=== PATIENT | female | born 1980 | race Caucasian/White ===

== ENCOUNTER 2018-04-08 11:04 | Emergency (ER) | payer OTHER ==
[2018-04-08 11:17] VITALS: BP 126/77; PULSE 95; RESP 18; TEMP 98.3
[2018-04-08] MEDS ORDERED: LIDOCAINE VISCOUS 2% 15 ML CUP MUCOUS MEM ONE (11:51)
[2018-04-08] MEDS ORDERED: cefTRIAXone 250 MG VIAL IM STA (11:51)
[2018-04-08] MEDS ORDERED: AZITHROMYCIN 500 MG TAB PO STA (11:51)
--- NOTE | 2018-04-08 11:56 | ED ---
General Adult HPI - General Chief complaint: GI Bleed Stated complaint: Rectal bleed Time Seen by Provider: 04/08/18 11:43 Source: patient, RN notes reviewed Mode of arrival: ambulatory Limitations: no limitations - History of Present Illness Initial comments: Patient 37-year-old female presented to the emergency room today with multiple complaints. She does admit that she came here to the emergency room initially because she needed be treated for gonorrhea. She states her boyfriend was recently seen here in emergency room test positive. She does admit that she's had some discharge just over the last 2 days. Patient also admits that last night she ate something that disagreed with her and she had diarrhea throughout the night. She states she has hemorrhoid this morning that was bleeding. She does admit some local tenderness. She denies any other complaints or symptoms. Patient denies any recent fever, chills, shortness of breath, chest pain, back pain, abdominal pain, nausea or vomiting, numbness or tingling, dysuria or hematuria, constipation, headaches or visual changes, or any other complaints. - Related Data Previous Rx's Medication Instructions Recorded Hydrocortisone [Anusol-Hc] 1 applic RECTAL TID #1 gm 04/08/18 Allergies Allergy/AdvReac Type Severity Reaction Status Date / Time ibuprofen [From Motrin] Allergy Swelling Verified 04/08/18 11:24 latex Allergy Rash/Hives Verified 04/08/18 11:24 tramadol HCl [From Ultram] Allergy Unknown Verified 04/08/18 11:24 Review of Systems ROS Statement: Those systems with pertinent positive or pertinent negative responses have been documented in the HPI. ROS Other: All systems not noted in ROS Statement are negative. Past Medical History Past Medical History: GERD/Reflux Additional Past Medical History / Comment(s): hx hypoglycemia History of Any Multi-Drug Resistant Organisms: None Reported Past Surgical History: Joint Replacement, Tubal Ligation Additional Past Surgical History / Comment(s): lt knee replacement Past Anesthesia/Blood Transfusion Reactions: No Reported Reaction Past Psychological History: Anxiety, Depression Smoking Status: Current every day smoker Past Alcohol Use History: None Reported Past Drug Use History: None Reported, Marijuana - Past Family History Mother History Unknown: Yes Family Medical History: Asthma, Coronary Artery Disease (CAD), Fibromyalgia, GERD/Reflux, Sleep Apnea/CPAP/BIPAP Additional Family Medical History / Comment(s): Aneurysm General Exam - General Exam Comments Initial Comments: General: The patient is awake and alert, in no distress, and does not appear acutely ill. Eye: Pupils are equal, round and reactive to light, extra-ocular movements are intact. No nystagmus. There is normal conjunctiva bilaterally. No signs of icterus. Ears, nose, mouth and throat: There are moist mucous membranes and no oral lesions. Neck: The neck is supple, there is no tenderness or JVD. Musculoskeletal: Normal ROM, no tenderness. Strength 5/5. Sensation intact. Neurological: A&O x 3. CN II-XII intact, There are no obvious motor or sensory deficits. Coordination appears grossly intact. Speech is normal. Skin: Skin is warm and dry and no rashes or lesions are noted. Psychiatric: Cooperative, appropriate mood & affect, normal judgment. Limitations: no limitations Course Vital Signs 04/08/18 11:13 Temperature 98.3 F Pulse Rate 95 Respiratory 18 Rate Blood Pressure 126/77 O2 Sat by Pulse 97 Oximetry Medical Decision Making - Medical Decision Making Patient will be treated for gonorrhea given a dose of Rocephin and also azithromycin here in emergency room. Patient will be also given lidocaine topical for hemorrhoid and placed on hemorrhoid cream and advised to use over- the-counter tuck wipes Disposition Clinical Impression: Gonorrhea, Hemorrhoid Disposition: HOME SELF-CARE Condition: Good Instructions: Sexually Transmitted Diseases (ED), Hemorrhoids (ED) Additional Instructions: Please no intercourse until all symptoms are completely resolved. Please use [id number] wipes for hemorrhoids as discussed. Please use cream as prescribed. Please follow-up the family doctor symptoms are all improved or return here to the emergency room for any other concerns. Prescriptions: Hydrocortisone [Anusol-Hc] 1 applic RECTAL TID #1 gm Is patient prescribed a controlled substance at d/c from ED?: No Referrals: None,Stated [Primary Care Provider] - 1-2 days Time of Disposition: 11:54
== END 2018-04-08 12:08 | disposition home or self-care (01) ==
LOC: EC 11:04
DX: K64.9 Unspecified hemorrhoids (principal); A54.9 Gonococcal infection, unspecified; F17.200 Nicotine dependence, unspecified, uncomplicated; Z88.5 Allergy status to narcotic agent; Z88.6 Allergy status to analgesic agent; Z91.040 Latex allergy status; Z98.51 Tubal ligation status
CPT/HCPCS: 99284; 96372; J0696

== ENCOUNTER 2019-04-16 11:00 | Emergency (ER) | payer OTHER ==
[2019-04-16 11:22] VITALS: TEMP 98.5
--- NOTE | 2019-04-16 11:57 | ED ---
Abdominal Pain HPI - General Chief Complaint: Abdominal Pain Stated Complaint: AND CRAMPING Time Seen by Provider: 04/16/19 11:24 Source: patient, RN notes reviewed Mode of arrival: ambulatory Limitations: no limitations - History of Present Illness Initial Comments: 38-year-old female presents emergency Department chief complaint of abdominal pain and early . Patient states that she found out she was last month has not had an ultrasound at this time. Patient believes that she is a weeks denies any vaginal bleeding or vaginal discharge. Patient states she has some mild lower abdominal cramping. Patient is concerned as she had tubal 19 years ago. Patient states that she was told that she had some scarring that she most likely will not get . Patient denies nausea, vomiting diarrhea, constipation. - Related Data Previous Rx's Medication Instructions Recorded Hydrocortisone [Anusol-Hc] 1 applic RECTAL TID #1 gm 04/08/18 Allergies Allergy/AdvReac Type Severity Reaction Status Date / Time ibuprofen [From Motrin] Allergy Swelling Verified 04/16/19 11:22 latex Allergy Rash/Hives Verified 04/16/19 11:22 tramadol HCl [From Ultram] Allergy Unknown Verified 04/16/19 11:22 Review of Systems ROS Statement: Those systems with pertinent positive or pertinent negative responses have been documented in the HPI. ROS Other: All systems not noted in ROS Statement are negative. Past Medical History Past Medical History: GERD/Reflux Additional Past Medical History / Comment(s): hx hypoglycemia History of Any Multi-Drug Resistant Organisms: None Reported Past Surgical History: Joint Replacement, Tubal Ligation Additional Past Surgical History / Comment(s): lt knee replacement Past Anesthesia/Blood Transfusion Reactions: No Reported Reaction Past Psychological History: Anxiety, Depression Smoking Status: Current every day smoker Past Alcohol Use History: None Reported Past Drug Use History: None Reported, Marijuana - Past Family History Mother History Unknown: Yes Family Medical History: Asthma, Coronary Artery Disease (CAD), Fibromyalgia, GERD/Reflux, Sleep Apnea/CPAP/BIPAP Additional Family Medical History / Comment(s): Aneurysm General Exam Limitations: no limitations General appearance: alert, in no apparent distress Neck exam: Present: normal inspection. Absent: tenderness, meningismus, lymphadenopathy Respiratory exam: Present: normal lung sounds bilaterally. Absent: respiratory distress, wheezes, rales, rhonchi, stridor Cardiovascular Exam: Present: regular rate, normal rhythm, normal heart sounds. Absent: systolic murmur, diastolic murmur, rubs, gallop, clicks GI/Abdominal exam: Present: soft, tenderness (Minimal suprapubic), normal bowel sounds. Absent: distended, guarding, rebound, rigid Back exam: Absent: CVA tenderness (R), CVA tenderness (L) Skin exam: Present: warm, dry, intact, normal color. Absent: rash Course Vital Signs 04/16/19 11:20 Temperature 98.5 F Pulse Rate 73 Respiratory 18 Rate Blood Pressure 117/64 O2 Sat by Pulse 100 Oximetry Medical Decision Making - Medical Decision Making 38-year-old female presented for abdominal pain and , mild cramping. Patient's urinalysis unremarkable. Patient's vitals are stable. Physical exam is benign. Patient had an ultrasound which shows single viable IUP 13 weeks and 6 days patient will be discharged and follow-up with her SOCK LINING EXAMINER. - Lab Data Lab Results 04/16/19 04/16/19 Range/Units 11:55 11:55 Urine Color Yellow Urine Appearance Clear (Clear) Urine pH 6.5 (5.0-8.0) Ur Specific [place] 1.014 (1.001-1.035) Urine Protein Negative (Negative) Urine Glucose (UA) Negative (Negative) Urine Ketones Negative (Negative) Urine Blood Negative (Negative) Urine Nitrite Negative (Negative) Urine Bilirubin Negative (Negative) Urine Urobilinogen <2.0 (<2.0) mg/dL Ur Leukocyte Esterase Small H (Negative) Urine RBC 1 (0-5) /hpf Urine WBC 1 (0-5) /hpf Ur Squamous Epith Cells 2 (0-4) /hpf Urine Mucus Rare H (None) /hpf Urine HCG, Qual Detected (Not Detectd) Disposition Clinical Impression: Abdominal pain during Disposition: HOME SELF-CARE Condition: Stable Instructions (If sedation given, give patient instructions): Abdominal Pain in (ED) Additional Instructions: Please return to the Emergency Department if symptoms worsen or any other concerns. Is patient prescribed a controlled substance at d/c from ED?: No Referrals: Mary Bullard MD [Primary Care Provider] - 1-2 days Time of Disposition: 13:27
[2019-04-16 12:17] LABS: Appearance,Urine Clear (Clear); Bilirubin,Urine Negative (Negative); Blood,Urine Negative (Negative); Color,Urine Yellow; Glucose,Urine (UA) Negative (Negative); Ketones,Urine Negative (Negative); Leukocyte Esterase,Urine Small (Negative); Mucus,Urine Rare /hpf; Nitrite,Urine Negative (Negative); PH, Urine 6.5 (5.0-8.0); Protein,Urine Negative (Negative); RBC,Urine 1 /hpf (0-5); Specific Gravity,Urine 1.014 (1.001-1.035); Squamous Epithelial Cell,Urine 2 /hpf (0-4); Urobilinogen,Urine <2.0 mg/dL (<2.0); WBC,Urine 1 /hpf (0-5)
--- NOTE | 2019-04-16 13:25 | US ---
EXAMINATION TYPE: Ultrasound OB <= 14 week fetus DATE OF EXAM: 04/16/2019 1:03 PM COMPARISON: NONE CLINICAL HISTORY: 38-year-old female Pain. Cramping, history of ectopic 20 years ago EXAM PERFORMED: Transabdominal (TA) FINDINGS: EXAM MEASUREMENTS: GESTATIONAL AGE / DATING Physician Established: Not yet established Dates by LMP: (10 weeks/2 days) EDC: 11/10/19 Dates by First Scan: No previous this is first scan Dates by Current Scan for: (13 weeks/6 days +/- 1 week 2 days) EDC: 10/16/19 MATERNAL ANATOMY Uterus: 16.1 x 7.0 x 10.9cm Right Ovary: 3.7 x 2.4 x 2.1cm Left Ovary: unable to visualize Post CDS / Adnexa: appears wnl Presence of free fluid: no Presence of corpus luteal cyst: hypoechoic area right ovary = 1.8 x 1.7 x 1.7cm GESTATION / SURVEY CRL: 7.7cm (13 weeks/6 days) Yolk Sac (normal less than 6mm): not seen Heart Rate: 135 bpm Rhythm: Normal IUP: Viable IUP Date of LMP: 02/03/19 Beta HcG (if available): Not available at this time single viable IUP 13wks/6 days with ROBERTO of 10/16/19. Probable corpus luteum right ovary IMPRESSION: 1. Single live intrauterine with gestational age of 13 weeks 6 days by crown-rump length. T his is discordant with gestational age by LMP. Correlate as to accuracy of recall of LMP. Follow-up a s clinically indicated. 2. Left ovary could not be visualized. 3. Complete survey recommended at 18-20 weeks.
[2019-04-16 13:37] VITALS: BP 129/87; PULSE 89; RESP 16
== END 2019-04-16 13:37 | disposition home or self-care (01) ==
LOC: EC 11:00
DX: O26.891 Other specified pregnancy related conditions, first trimester (principal); R10.30 Lower abdominal pain, unspecified; O99.331 Smoking (tobacco) complicating pregnancy, first trimester; F17.200 Nicotine dependence, unspecified, uncomplicated; Z3A.13 13 weeks gestation of pregnancy; Z88.5 Allergy status to narcotic agent; Z91.040 Latex allergy status; Z88.6 Allergy status to analgesic agent; Z96.652 Presence of left artificial knee joint
CPT/HCPCS: 76801; 81001; 81025; 99284

== ENCOUNTER 2019-10-11 06:15 | Inpatient (IN) | payer OTHER ==
[2019-10-11] MEDS ORDERED: LIDOCAINE 0.5% (PF) 5 MG/ML (50 ML SDV) SQ PRN (07:03)
[2019-10-11] MEDS ORDERED: TERBUTALINE 1 MG/ML VIAL SQ PRN (07:03)
[2019-10-11] MEDS ORDERED: OXYTOCIN 10 UNIT/ML 1 ML VIAL IM PRN (07:03)
[2019-10-11] MEDS ORDERED: CARBOPROST TROMETHAMINE 250 MCG/ML 1 ML AMP IM PRN (07:03)
[2019-10-11] MEDS ORDERED: METHYLERGONOVINE 0.2 MG/ML 1 ML AMP IM PRN (07:03)
[2019-10-11 07:15] LABS: Basophils % (A) 0 %; Eosinophils # (A) 0.2 k/uL (0-0.7); Eosinophils % (A) 2 %; HCT 36.4 % (34.0-46.0); HGB 12.9 gm/dL (11.4-16.0); Lymphocytes # (A) 2.1 k/uL (1.0-4.8); Lymphocytes % (A) 25 %; MCH 33.1 pg (25.0-35.0); MCHC 35.5 g/dL (31.0-37.0); MCV 93.2 fL (80.0-100.0); Mean Platelet Volume 8.3; Monocytes # (A) 0.6 k/uL (0-1.0); Monocytes % (A) 7 %; Neutrophils # (A) 5.3 k/uL (1.3-7.7); Neutrophils % (A) 64 %; Platelet Count 236 k/uL (150-450); RBC 3.91 m/uL (3.80-5.40); RDW 13.2 % (11.5-15.5); WBC 8.3 k/uL (3.8-10.6)
[2019-10-11] MEDS: LACTATED RINGERS 1,000 ML IV SCH ×2 (07:33→19:51)
[2019-10-11] MEDS: OXYTOCIN 30 UNITS/500 ML NS 30 UNIT in SALINE 1 500ML.BAG IV SCH (07:33)
--- NOTE | 2019-10-11 08:34 | P.HPOB ---
History of Present Illness H&P Date: 10/11/19 Chief Complaint: Intrauterine at term: Induction of labor Jacqueline is a 39-year-old 3 para 1 at 39 weeks gestation. Her course has been complicated by advanced maternal age as well as marijuana use. We have been following her very closely and we did call Latrice with maternal- medicine. The last time she was seen she was not significantly dilated but this was at 37 weeks. At that time per her request and induction was scheduled but she did not return for follow-up visit. Therefore she was not examined at 38 weeks to determine cervical favorability. This morning her cervix is fingertip 50% effaced and very high. Will obtain ultrasound later this morning to verify EFW/LEÓN/and position. After discussion of options with her and based on her maternal age, she would like to try Pitocin augmentation at least initially this morning. If it does not work will likely stop the Pitocin and do Cervidil ripening this afternoon with hopeful induction tomorrow. We did discuss sending her home, but she is adamant that she have her baby. She is aware that there is a significant higher risk of failure and need for section based on cervical ripeness as well as. all questions w regular diet and plan for Cervidil tonight.bernardA diet a diet answered for her at this time. We'll plan Pitocin augmentation of labor until early afternoon at which time should she not be dilated we'll allow her to have food and plan cervadil for tonight and retry induction in a.m. be category 1 tracing is noted. Past Medical History Past Medical History: GERD/Reflux Additional Past Medical History / Comment(s): hx hypoglycemia History of Any Multi-Drug Resistant Organisms: None Reported Past Surgical History: Joint Replacement, Tubal Ligation Additional Past Surgical History / Comment(s): lt knee replacement Past Anesthesia/Blood Transfusion Reactions: No Reported Reaction Past Psychological History: Anxiety, Depression Smoking Status: Current every day smoker Past Alcohol Use History: None Reported Past Drug Use History: None Reported, Marijuana Additional Drug Use History / Comment(s): daily marijuana use - Past Family History Mother History Unknown: Yes Family Medical History: Asthma, Coronary Artery Disease (CAD), Fibromyalgia, GERD/Reflux, Sleep Apnea/CPAP/BIPAP Additional Family Medical History / Comment(s): Aneurysm Medications and Allergies Home Medications Medication Instructions Recorded Confirmed Type Hydrocortisone [Anusol-Hc] 1 applic RECTAL TID #1 gm 04/08/18 Rx Allergies Allergy/AdvReac Type Severity Reaction Status Date / Time ibuprofen [From Motrin] Allergy Swelling Verified 10/11/19 07:02 latex Allergy Rash/Hives Verified 10/11/19 07:02 tramadol HCl [From Ultram] Allergy Unknown Verified 10/11/19 07:02 Exam Osteopathic Statement: *. No significant issues noted on an osteopathic structural exam other than those noted in the History and Physical/Consult. Vital Signs Temp Pulse Resp BP 10/11/19 07:01 96.9 F L 97 16 120/77 Intake and Output 10/10/19 10/11/19 10/11/19 22:59 06:59 14:59 Other: Weight 98.43 kg - OBG Physical Exam Breast: both: normal (no masses) Abdomen: bowel sounds normal, no diffuse tenderness, no bruit present, no guarding noted, no hepatomegaly, no splenomegaly, no mass Vulva: both: normal Vagina: normal moisture, no discharge Cervix: no lesion, no discharge Uterus: normal size, normal contour Adnexa: both: normal Anus/Rectum: normal perianal skin, no rectal mass, no hemorrhoids, heme negative Results Result Diagrams: 10/11/19 07:00
--- NOTE | 2019-10-11 09:38 | US ---
EXAMINATION TYPE: US OB BPP wo non-stress DATE OF EXAM: 10/11/2019 COMPARISON: NONE CLINICAL HISTORY: advanced maternal age. advanced maternal age EXAM PERFORMED: Transabdominal (TA) BPP PARAMETERS: PRESENTATION: Vertex LIE: Longitudinal?? HEART RATE: 136 bpm RHYTHM: Normal LEÓN: 17.4cm DIAPHRAGM IMAGED: yes BPP SCORIN. Breathin (1 episode of breathing of 30 second duration in 30 minutes of scanning time) 2. Movement: 2 (at least 3 discrete body movements in 30 minutes) 3. Tone: 2 (1 episode of active flexion/extension of limb) 4. LEÓN: 2 (LEÓN index > 5cm) IMPRESSION: NORMAL EXAM. TOTAL SCORE: 8 / 8
--- NOTE | 2019-10-11 09:40 | US ---
EXAMINATION TYPE: US OB limited DATE OF EXAM: 10/11/2019 COMPARISON: NONE CLINICAL HISTORY: advanced maternal age. Position, EFW EXAM PERFORMED: Transabdominal (TA) GESTATIONAL AGE / DATING Physician Established: (39 weeks/2 days) EDC: 10/16/19 Dates by Current Scan: (37 weeks/5 days) EDC: 10/27/19 SURVEY PRESENTATION: Vertex LIE: Longitudinal HEART RATE: 127 bpm RHYTHM: Normal BPD: 8.9cm (36wks/0days) HC: 33.7cm (38wks/5days) AC: 34.1cm (38wks/1day) FL: 7.3cm (37wks/4days) EFW: 3290 grams 7lbs 4 oz HC/AC: 0.99 normal FL/AC: 22% normal IMPRESSION: Single live intrauterine with a sonographic age of 37 weeks and 5 days and est imated date of delivery of 10/27/2019, discordant with menstrual age likely due to late gestation. Po sition as longitudinal and presentation is vertex. Heart rate of 127 bpm.
[2019-10-11] MEDS ORDERED: DINOPROSTONE 10 MG INSERT.ER VAGINAL ONE (17:00)
[2019-10-11] MEDS ORDERED: ONDANSETRON 4 MG/2 ML VIAL IVP STA (17:47)
[2019-10-11] MEDS ORDERED: ONDANSETRON 4 MG/2 ML VIAL IVP PRN (20:06)
[2019-10-11] MEDS ORDERED: BUTORPHANOL 1 MG/ML 1 ML VIAL IV PRN (20:06)
[2019-10-12] MEDS: LACTATED RINGERS 1,000 ML IV SCH ×4 (01:12→19:59)
[2019-10-12] MEDS: OXYTOCIN 30 UNITS/500 ML NS 30 UNIT in SALINE 1 500ML.BAG IV SCH (06:46)
[2019-10-12] MEDS ORDERED: CITRIC ACID-SODIUM CITRATE 15 ML CUP PO ONE (08:33)
[2019-10-12] MEDS ORDERED: ONDANSETRON 4 MG/2 ML VIAL ONE (08:42)
[2019-10-12] MEDS ORDERED: KETOROLAC 30 MG/ML 1 ML VIAL ONE (08:42)
[2019-10-12] MEDS ORDERED: OXYTOCIN 10 UNIT/ML 1 ML VIAL ONE (08:42)
[2019-10-12] MEDS ORDERED: NALBUPHINE 10 MG/ML (1 ML AMP) ONE (08:42)
[2019-10-12] MEDS ORDERED: NALOXONE 0.4 MG/ML 1 ML VIAL IV PRN (09:18)
[2019-10-12] MEDS ORDERED: ZOLPIDEM 5 MG TAB PO PRN (09:18)
[2019-10-12] MEDS ORDERED: METOCLOPRAMIDE 5 MG/ML 2 ML VIAL IVP PRN (09:18)
[2019-10-12] MEDS ORDERED: SIMETHICONE 80 MG CHEWABLE PO PRN (09:18)
[2019-10-12] MEDS ORDERED: ONDANSETRON 4 MG/2 ML VIAL IVP PRN (09:18)
[2019-10-12] MEDS ORDERED: ACETAMINOPHEN TAB 325 MG TAB PO PRN (09:18)
[2019-10-12] MEDS ORDERED: diphenhydrAMINE 50 MG CAP PO PRN (09:18)
[2019-10-12] MEDS ORDERED: HYDROcodone/APAP 7.5-325MG 1 EACH TAB PO PRN (09:18)
[2019-10-12] MEDS ORDERED: diphenhydrAMINE 50 MG/ML 1 ML VIAL IVP PRN ×2 (09:18)
[2019-10-12] MEDS ORDERED: diphenhydrAMINE 25 MG CAP PO PRN (09:18)
[2019-10-12] MEDS ORDERED: IBUPROFEN 600 MG TAB PO PRN (09:18)
--- NOTE | 2019-10-12 09:24 | P.OP ---
Date of Procedure: 10/12/19 Preoperative Diagnosis: Intrauterine [place] term: Nonreassuring heart tones/repetitive late decelerations, family planning Postoperative Diagnosis: Same Procedure(s) Performed: Primary low transverse section with bilateral tubal occlusion with Filshie clips Anesthesia: spinal Surgeon: Peewee Izaguirre Water/Wastewater Project Manager #1: Radha Dumont Estimated Blood Loss (ml): 500 IV fluids (ml): 600 Urine output (ml): 100 Pathology: other (Placenta) Condition: stable Disposition: floor Operative Findings: Male 's of 8 and 9 at one and 5 minute just [place] weight was 7 lbs. 4 oz. A nuchal cord 1 that was tight was noted as was a true knot in the cord Description of Procedure: Jacqueline underwent artificial rupture membranes morning dilated to 1 cm 50% effaced -3 station. Clear fluid is noted. However after one contraction she was already having late decelerations and I went to the room on the second contraction. The late decelerations continued over the next 3-4 contractions and on the last deceleration with late with late return to baseline with the from a baseline of 150 down into the 70s. This resolved over approximately 2-3 minute timeframe. With her being so remote from delivery and with her history of drug abuse and advanced maternal age, a decision to move forward with a primary section was made. We were ready to move for a general anesthetic however, baby return to baseline and had good mmio-ct-dngy variability and over the next 2 contractions had minimal drop off of the normal baseline and return to a category 1 tracing. She was brought to the section room for a spinal anesthetic with the monitoring system being done the entire time. It is also noted that Jacqueline has maternal bradycardia even with her complaining of sharp severe contraction pain her heart rate is in the high 40s to low 50s. Unclear etiology a UDS will be done. She was taken to the operating suite where a spinal anesthetic was found be adequate. She was prepped and draped in the normal sterile fashion and placed in dorsal supine position with leftward tilt. Initially a Pfannenstiel skin incision was made and this incision was then carried through to underlying layer of the fascia was second knife. Fascia was then nicked in the midline and this incision was extended laterally with Yanes scissors. Superior and inferior aspect of this incision were then grasped tented up and bluntly and sharply dissected off the rectus muscles. Rectus muscles were then divided the midline and blunt dissection through the peritoneum was made. This opening was then extended superiorly and inferiorly with good visualization of both bowel bladder. Bladder blade was placed and the bladder flap identified and entered and carried across face uterus with metastases scissors and gently bluntly dissected out of the operative field. Knife was then used to incise uterus this opening was then extended bluntly following use of hemostat to fully developed incision. Head was then atraumatically delivered without difficulty a nuchal cord 1 that was very tight was noted as was a true knot in the cord. I do not note any cord otherwise near the presenting part as my initial concern actually was that she had some type of partial prolapse or compound cord which, it may have been but was reduced during the delivery of the head. Once baby was fully delivered mouth nares were bulb suctioned and the umbilical cord was clamped cut in the usual fashion with nursery personnel present to assume care. Placenta was then delivered intact and Pitocin was added to the IV. Uterus was then exteriorized, cleared of clots and debris, and closed in 1 layer with 0 Vicryl suture. Once excellent hemostasis was obtained fallopian tubes were grasped and a Filshie clip was placed 3 cm from uterine cornu bilaterally. No bleeding is noted in the mesosalpinx. Blood and debris was then suctioned from the posterior cul-de-sac and uterus was reinserted into the abdomen. Peritoneal layer was then identified and closed with 0 Vicryl suture. Fascial layer was closed with 0 Vicryl suture. One layer of 3-0 Vicryl was placed in deep subcuticular tissues to reapproximate the skin. Skin was then closed with 3-0 Vicryl subcuticularly. Sponge, lap, needle counts were correct 2. Patient was then taken to the recovery room in stable and satisfactory condition.
[2019-10-12 10:14] LABS: Amphetamine Screen,Urine Not Detected (NotDetected); Barbiturate Screen,Urine Not Detected (NotDetected); Benzodiazepines Screen,Urine Not Detected (NotDetected); Cocaine Screen,Urine Not Detected (NotDetected); Methadone Screen, Urine Not Detected (NotDetected); Opiate Screen,Urine Not Detected (NotDetected); Oxycodone Screen, Urine Not Detected (NotDetected); Phencyclidine Screen,Urine Not Detected (NotDetected); Tricyclic Antidepressant,Urine Not Detected (NotDetected); Urn Cannabinoid Scrn Detected (NotDetected)
--- NOTE | 2019-10-12 17:12 | P.PN ---
Progress Note - Text Progress Note Date: 10/12/19 Jacqueline is seen and evaluated. She looks very good this evening. Her nausea slightly better. She I have previously discussed marijuana induced nausea and emesis but she is convinced it is not that. She has received several doses of Zofran through the day and will plan to continue doing that as needed. Consideration for Reglan or even visceral suppository can be made she would the nausea and emesis worsened. It is also noted that her bradycardia has continued throughout the day. Just prior to going back for the section even with all the stress anxiety of going back for her heart rate was in the mid to high 40s and low 50s. It is unclear to me if this is simply a sinus bradycardia from the marijuana use or some other form of heart block. Would be more concerning. We'll order a 12-lead EKG and assess from that standpoint. Symptomatically she has no lightheadedness or dizziness she is laying in bed comfortably and voices no points of pain. Her urine is concentrated and will add a fluid bolus to try and stay might better urine production it is over 50 mL an hour, but it is as. He noted concentrated and with the amount of dehydration she's had due to her persistent nausea and vomiting like to remain make sure that that is not an issue later tonight. [employer] CHIEF GREEN OFFICER was also ordered. All questions were answered for her at this time. Otherwise continue current care
[2019-10-12] MEDS: SENNOSIDES-DOCUSATE SODIUM 1 EACH TAB PO SCH (20:30)
[2019-10-12] MEDS: KETOROLAC 30 MG/ML 1 ML VIAL IVP PRN (20:30)
[2019-10-13] MEDS: KETOROLAC 30 MG/ML 1 ML VIAL IVP PRN ×2 (03:42→10:04)
[2019-10-13 07:26] VITALS: RESP 16
[2019-10-13 08:12] LABS: Appearance,Urine Turbid (Clear); Bilirubin,Urine Negative (Negative); Blood,Urine Moderate (Negative); Color,Urine Light Orange; Glucose,Urine (UA) Negative (Negative); Ketones,Urine 4+ (Negative); Leukocyte Esterase,Urine Negative (Negative); Mucus,Urine Many /hpf; Nitrite,Urine Negative (Negative); Protein,Urine 1+ (Negative); RBC,Urine 104 /hpf (0-5); Squamous Epithelial Cell,Urine 1 /hpf (0-4); WBC,Urine 3 /hpf (0-5)
--- NOTE | 2019-10-13 08:46 | P.PN ---
Progress Note - Text Anesthesia POD 1. Patient is status post section under spinal anesthesia with intra-thecal preservative free morphine the 100 g. Mild pruritus, good post-op analgesia, and no headache or other complication.
[2019-10-13 09:08] LABS: Basophils % (A) 0 %; Eosinophils # (A) 0.1 k/uL (0-0.7); Eosinophils % (A) 1 %; HCT 33.7 % (34.0-46.0); HGB 11.7 gm/dL (11.4-16.0); Lymphocytes # (A) 1.3 k/uL (1.0-4.8); Lymphocytes % (A) 18 %; MCH 33.1 pg (25.0-35.0); MCHC 34.9 g/dL (31.0-37.0); MCV 94.9 fL (80.0-100.0); Mean Platelet Volume 8.3; Monocytes # (A) 0.7 k/uL (0-1.0); Monocytes % (A) 9 %; Neutrophils # (A) 5.4 k/uL (1.3-7.7); Neutrophils % (A) 71 %; Platelet Count 192 k/uL (150-450); RBC 3.55 m/uL (3.80-5.40); RDW 13.2 % (11.5-15.5); WBC 7.6 k/uL (3.8-10.6)
[2019-10-13] MEDS: SENNOSIDES-DOCUSATE SODIUM 1 EACH TAB PO SCH (10:03)
[2019-10-13 14:57] VITALS: BP 114/67; PULSE 52; TEMP 98.3
--- NOTE | 2019-10-13 18:38 | P.DS ---
Providers Date of admission: 10/11/19 06:45 Expected date of discharge: 10/13/19 Attending physician: Peewee Izaguirre Primary care physician: Stated None Hospital Course: Jacqueline is being discharged to home at this time postop day 1 as her baby is being transferred to [facility] for possible Hirschsprung's disease. She is stable, vital signs are stable and afebrile. Heart regular, lungs clear, extremities without pain. Abdomen soft uterus is firm and incision is clean dry and intact. Discharge instructions were thoroughly reviewed and all questions were answered for her prior to her discharge. Prescription for [place] and Motrin was handed to her so she can fill it at her convenience as [place] the city. She will follow up with me in 1 week. She is stable for discharge at this time. Patient Condition at Discharge: Good Plan - Discharge Summary New Discharge Prescriptions: New Ibuprofen [Motrin] 600 mg PO Q6HR PRN #30 tab PRN Reason: Pain HYDROcodone/APAP 5-325MG [[place] 5-325] 1 tab PO Q4HR PRN #30 tab PRN Reason: Pain No Action Hydrocortisone [Anusol-Hc] 1 applic RECTAL TID #1 gm Discharge Medication List Hydrocortisone [Anusol-Hc] 1 applic RECTAL TID #1 gm 04/08/18 [Rx] HYDROcodone/APAP 5-325MG [[place] 5-325] 1 tab PO Q4HR PRN #30 tab 10/13/19 [Rx] Ibuprofen [Motrin] 600 mg PO Q6HR PRN #30 tab 10/13/19 [Rx] Follow up Appointment(s)/Referral(s): Peewee Izaguirre DO [Doctor of Osteopathic Medicine] - 1 Week Activity/Diet/Wound Care/Special Instructions: No heavy lifting, limit stairs and driving, and pelvic rest. If any high temperatures, heavy bleeding, or severe pain call my office Discharge Disposition: HOME SELF-CARE
== END 2019-10-13 18:45 | disposition home or self-care (01) | DRG 784 ==
LOC: 4FBP 06:45
PROVIDERS: ADMIT Obstetrics & Gynecology; ATTEND Obstetrics & Gynecology
PROC: 3E033VJ Introduction of Other Hormone into Peripheral Vein, Percutaneous Approach (ICD-10-PCS; principal; 2019-10-11)
PROC: 10907ZC Drainage of Amniotic Fluid, Therapeutic from Products of Conception, Via Natural or Artificial Opening (ICD-10-PCS; principal; 2019-10-11)
PROC: 3E0P7VZ Introduction of Hormone into Female Reproductive, Via Natural or Artificial Opening (ICD-10-PCS; principal; 2019-10-11)
PROC: 10D00Z1 Extraction of Products of Conception, Low, Open Approach (ICD-10-PCS; 2019-10-12)
PROC: 0UL70DZ Occlusion of Bilateral Fallopian Tubes with Intraluminal Device, Open Approach (ICD-10-PCS; 2019-10-12)
DX: O69.2XX0 Labor and delivery complicated by other cord entanglement, with compression, not applicable or unspecified (principal); O99.324 Drug use complicating childbirth; O76 Abnormality in fetal heart rate and rhythm complicating labor and delivery; F17.200 Nicotine dependence, unspecified, uncomplicated; O99.334 Smoking (tobacco) complicating childbirth; Z88.8 Allergy status to other drugs, medicaments and biological substances; Z88.6 Allergy status to analgesic agent; Z91.040 Latex allergy status; E86.0 Dehydration; Z37.0 Single live birth; Z3A.39 39 weeks gestation of pregnancy; F12.90 Cannabis use, unspecified, uncomplicated; O99.89 Other specified diseases and conditions complicating pregnancy, childbirth and the puerperium; R00.1 Bradycardia, unspecified; O99.284 Endocrine, nutritional and metabolic diseases complicating childbirth; Z82.49 Family history of ischemic heart disease and other diseases of the circulatory system; Z82.5 Family history of asthma and other chronic lower respiratory diseases; Z96.652 Presence of left artificial knee joint
CPT/HCPCS: 76815; 76819; 80306; 81001; 85025; 86850; 86900; 86901; 87086; 88307; 93005

== ENCOUNTER 2021-06-05 17:44 | Emergency (ER) | payer OTHER ==
[2021-06-05 18:14] VITALS: BP 129/85; PULSE 85; RESP 18; TEMP 98
[2021-06-05] MEDS ORDERED: PENICILLIN VK 500MG STARTER 4 TAB BTL PO STA (19:24)
--- NOTE | 2021-06-05 19:25 | ED ---
General Adult HPI - General Chief complaint: Dental/Oral Stated complaint: tooth ache Time Seen by Provider: 06/05/21 19:16 Source: patient Mode of arrival: ambulatory Limitations: no limitations - History of Present Illness Initial comments: 40-year-old female presents to the emergency room for a chief complaint of dental pain. Patient reports that she has had dental pain on the right side of her upper jaw for the past several days. Patient states about a week ago she chipped a tooth. Patient states she does not usually see a dentist because she is afraid of dentists. However she did call today to try to make an appointment and they cannot get her in for 2 weeks so they advised her to come to the emergency room. Patient denies fevers or chills. Denies neck stiffness.Patient has no other complaints at this time including shortness of breath, chest pain, abdominal pain, nausea or vomiting, headache, or visual changes. - Related Data Previous Rx's Medication Instructions Recorded Hydrocortisone [Anusol-Hc] 1 applic RECTAL TID #1 gm 04/08/18 HYDROcodone/APAP 5-325MG [[place] 1 tab PO Q4HR PRN #30 tab 10/13/19 5-325] Ibuprofen [Motrin] 600 mg PO Q6HR PRN #30 tab 10/13/19 Penicillin V Potassium [Pen Vee K] 500 mg PO Q6H 10 Days #40 tablet 06/05/21 Allergies Allergy/AdvReac Type Severity Reaction Status Date / Time ibuprofen [From Motrin] Allergy Swelling Verified 06/05/21 18:14 latex Allergy Rash/Hives Verified 06/05/21 18:14 tramadol HCl [From Ultram] Allergy Unknown Verified 06/05/21 18:14 Review of Systems ROS Statement: Those systems with pertinent positive or pertinent negative responses have been documented in the HPI. ROS Other: All systems not noted in ROS Statement are negative. Past Medical History Past Medical History: GERD/Reflux Additional Past Medical History / Comment(s): hx hypoglycemia History of Any Multi-Drug Resistant Organisms: None Reported Past Surgical History: Joint Replacement, Tubal Ligation Additional Past Surgical History / Comment(s): lt knee replacement Past Anesthesia/Blood Transfusion Reactions: No Reported Reaction Past Psychological History: Anxiety, Depression Smoking Status: Current every day smoker Past Alcohol Use History: None Reported Past Drug Use History: None Reported, Marijuana - Past Family History Mother History Unknown: Yes Family Medical History: Asthma, Coronary Artery Disease (CAD), Fibromyalgia, GERD/Reflux, Sleep Apnea/CPAP/BIPAP Additional Family Medical History / Comment(s): Aneurysm General Exam Limitations: no limitations General appearance: alert, in no apparent distress Head exam: Present: atraumatic Eye exam: Present: normal appearance, PERRL, EOMI. Absent: scleral icterus, conjunctival injection ENT exam: Absent: normal exam, normal oropharynx (Patient has poor dentition noted. Patient has pain around tooth 5. Patient does not have any associated abscess on palpation or direct visualization of the gumline. No sublingual edema.) Neck exam: Present: normal inspection, full ROM. Absent: tenderness Respiratory exam: Present: normal lung sounds bilaterally. Absent: respiratory distress, wheezes Cardiovascular Exam: Present: regular rate, normal rhythm, normal heart sounds Course Vital Signs 06/05/21 18:12 Temperature 98 F Pulse Rate 85 Respiratory 18 Rate Blood Pressure 129/85 O2 Sat by Pulse 98 Oximetry Medical Decision Making - Medical Decision Making Patient is well-appearing. She does have poor dentition. She has pain around tooth 5 however there is no abscess associated. At this time we will treat patient with penicillin. She will follow-up with her dentist. she will return for any worsening symptoms. Disposition Clinical Impression: Toothache Disposition: HOME SELF-CARE Condition: Good Instructions (If sedation given, give patient instructions): Toothache (ED) Additional Instructions: Take antibiotic as directed. Take Tylenol for pain. Follow-up with your dentist at your scheduled appointment. Return to the emergency room for worsening symptoms. Prescriptions: Penicillin V Potassium [Pen Vee K] 500 mg PO Q6H 10 Days #40 tablet Is patient prescribed a controlled substance at d/c from ED?: No Referrals: Mary Bullard MD [Primary Care Provider] - 1-2 days Time of Disposition: 19:24
== END 2021-06-05 19:20 | disposition home or self-care (01) ==
LOC: EC 17:44
DX: K08.89 Other specified disorders of teeth and supporting structures (principal); F17.200 Nicotine dependence, unspecified, uncomplicated; Z91.040 Latex allergy status; Z88.6 Allergy status to analgesic agent
CPT/HCPCS: 99282

== ENCOUNTER 2024-07-31 10:47 | Emergency (ER) | payer OTHER ==
--- NOTE | 2024-07-31 12:25 | XR ---
EXAMINATION TYPE: XR chest 2V DATE OF EXAM: 07/31/2024 COMPARISON: NONE HISTORY: Cough TECHNIQUE: Frontal and lateral views of the chest are obtained. FINDINGS: There is no focal air space opacity, pleural effusion, or pneumothorax seen. The cardiac silhouette size is within normal limits. The osseous structures are intact. IMPRESSION: No acute cardiopulmonary process. [facility], Workstation: [email or web address], 07/31/2024 12:22 PM
--- NOTE | 2024-07-31 13:29 | ED ---
URI HPI - General Chief Complaint: Upper Respiratory Infection Stated Complaint: Congestion, body aches, cough Time Seen by Provider: 07/31/24 11:06 Source: patient, RN notes reviewed Mode of arrival: ambulatory Limitations: no limitations - History of Present Illness Initial Comments: This is a 43-year-old female who presents to the emergency department for coughing, congestion, and body aches. States that it has been going on for the last 2 to 3 weeks. States that it seems to get better and then gets worse again. She has been using [id number] treatments without any relief. Cough is occasionally productive. She has had sick contacts. Denies any chest pain or shortness of breath. MD Complaint: cough - Related Data Previous Rx's Medication Instructions Recorded Hydrocortisone [Anusol-Hc] 1 applic RECTAL TID #1 gm 04/08/18 HYDROcodone/APAP 5-325MG [[place] 1 tab PO Q4HR PRN #30 tab 10/13/19 5-325] Ibuprofen [Motrin] 600 mg PO Q6HR PRN #30 tab 10/13/19 Penicillin V Potassium [Pen Vee K] 500 mg PO Q6H 10 Days #40 tablet 06/05/21 Benzonatate [Tessalon Perle] 200 mg PO TID PRN #30 capsule 07/31/24 Allergies Allergy/AdvReac Type Severity Reaction Status Date / Time ibuprofen [From Motrin] Allergy Swelling Verified 07/31/24 11:01 latex Allergy Rash/Hives Verified 07/31/24 11:01 tramadol HCl [From Ultram] Allergy Unknown Verified 07/31/24 11:01 Review of Systems ROS Statement: Those systems with pertinent positive or pertinent negative responses have been documented in the HPI. ROS Other: All systems not noted in ROS Statement are negative. Past Medical History Past Medical History: GERD/Reflux Additional Past Medical History / Comment(s): hx hypoglycemia History of Any Multi-Drug Resistant Organisms: None Reported Past Surgical History: Joint Replacement, Tubal Ligation Additional Past Surgical History / Comment(s): lt knee replacement Past Anesthesia/Blood Transfusion Reactions: No Reported Reaction Past Psychological History: Anxiety, Depression Smoking Status: Current every day smoker Past Alcohol Use History: None Reported Past Drug Use History: Marijuana - Past Family History Mother History Unknown: Yes Family Medical History: Asthma, Coronary Artery Disease (CAD), Fibromyalgia, GERD/Reflux, Sleep Apnea/CPAP/BIPAP Additional Family Medical History / Comment(s): Aneurysm General Exam Limitations: no limitations General appearance: alert, in no apparent distress Head exam: Present: atraumatic, normocephalic, normal inspection Respiratory exam: Present: normal lung sounds bilaterally. Absent: respiratory distress, wheezes, rales, rhonchi, stridor Cardiovascular Exam: Present: regular rate, normal rhythm, normal heart sounds. Absent: systolic murmur, diastolic murmur, rubs, gallop, clicks Neurological exam: Present: alert, oriented X3, CN II-XII intact Psychiatric exam: Present: normal affect, normal mood Skin exam: Present: warm, dry, intact, normal color. Absent: rash Course Vital Signs 07/31/24 07/31/24 07/31/24 10:58 13:43 14:26 Temperature 98.1 F 97.7 F 97.9 F Pulse Rate 80 71 72 Respiratory 20 18 18 Rate Blood Pressure 122/82 107/75 119/74 O2 Sat by Pulse 97 95 98 Oximetry Medical Decision Making - Medical Decision Making This is a 43 year old female who presents to the emergency department for coughing and congestion. Was pt. sent in by a medical professional or institution? @ -No Did you speak to anyone other than the patient for history? @ -No Did you review nursing and triage notes? @ -Yes, and I agree, it is accurate with regards to the patient's symptoms. Were old charts reviewed? @ -No Differential Diagnosis? @ -Differential Cough: Influenza, Covid, RSV, croup, allergic rhinitis, GERD, pneumonia, bronchitis, COPD, viral pharyngitis, streptococcal pharyngitis, this is not meant to be an all-inclusive list. EKG interpreted by me (3pts min.)? @ -Not obtained X-rays interpreted by me (1pt min.)? @ -Chest x-ray obtained, my interpretation identifies no localized consolidations or infiltrates. CT interpreted by me (1pt min.)? @ -Not obtained U/S interpreted by me (1pt. min.)? @ -Not obtained What testing was considered but not performed? (CT, X-rays, U/S, labs)? Why? @ -None What meds were considered but not given? Why? @ -None Did you discuss the management of the patient with other professionals? @ -No Did you reconcile home meds? @ -No Was smoking cessation discussed for >3mins.? @ -I discussed smoking cessation for greater than 3 minutes. The risk of smoking were discussed with the patient including but not limited to risks of cancer, stroke, coronary artery disease and COPD. Also discussed with patient were multiple methods of quitting smoking. Lastly we discussed the financial cost of smoking. Was critical care preformed (if so, how long)? @ -No Were there social determinants of health that impacted care today? How? (Homelessness, low income, unemployed, alcoholism, drug addiction, transportation, low edu. Level, literacy, decrease access to med. care, group home, rehab)? @ -No Was there de-escalation of care discussed even if they declined? (Discuss DNR or withdrawal of care, Hospice)? @ -No What co-morbidities impacted this encounter? (DM, HTN, Smoking, COPD, CAD, Cancer, CVA, Hep., AIDS, mental health diagnosis, sleep apnea, morbid obesity)? @ -Smoking, GERD Was patient admitted / discharged? @ -Discharged. COVID, influenza, and RSV testing negative. Chest x-ray reveals no acute process. Symptoms likely viral in nature. Prescription for Tessalon Perles provided to help with the cough. Otherwise advised follow-up with her primary care provider. Patient discharged home in stable condition. Case discussed with ED attending Dr. Guillen. Return precautions reviewed in depth, the patient is instructed to return to the emergency department with any new, worsening, or concerning symptoms. Patient verbalized understanding. Undiagnosed new problem with uncertain prognosis? @ -None Drug Therapy requiring intensive monitoring for toxicity (Heparin, Nitro, Insulin, Cardizem)? @ -None Were any procedures done? @ -None Diagnosis/symptom? @ -URI Acute, or Chronic, or Acute on Chronic? @ -Acute Uncomplicated (without systemic symptoms) or Complicated (systemic symptoms)? @ -Uncomplicated Side effects of treatment? @ -None Exacerbation, Progression, or Severe Exacerbation] @ -Not applicable Poses a threat to life or bodily function? @ -No - Lab Data Lab Results 07/31/24 Range/Units 13:06 Influenza Type A (PCR) Not Detected (Not Detectd) Influenza Type B (PCR) Not Detected (Not Detectd) RSV (PCR) Not Detected (Not Detectd) SARS-CoV-2 (PCR) Not Detected (Not Detectd) - Radiology Data Radiology results: report reviewed, image reviewed Disposition Clinical Impression: Upper respiratory tract infection, Nicotine dependence Disposition: HOME SELF-CARE Instructions (If sedation given, give patient instructions): Upper Respiratory Infection (ED) Additional Instructions: Return to the emergency department with any new, worsening, or concerning symptoms. You can have the cough medication up to every 8 hours as needed. Follow up with your primary care provider in 1-2 days. Prescriptions: Benzonatate [Tessalon Perle] 200 mg PO TID PRN #30 capsule PRN Reason: Cough Is patient prescribed a controlled substance at d/c from ED?: No Referrals: Mary Bullard MD [Primary Care Provider] - 1-2 days Time of Disposition: 14:05
[2024-07-31] MEDS: BENZONATATE 100 MG CAP PO STA (13:41)
[2024-07-31 13:47] VITALS: RESP 18
[2024-07-31 14:28] VITALS: BP 119/74; PULSE 72; TEMP 97.9
== END 2024-07-31 14:28 | disposition home or self-care (01) ==
LOC: EC 10:47
CPT/HCPCS: 71046; 87636; 99283